=== PATIENT | female | born 1945 | race Caucasian/White ===

== ENCOUNTER 2019-05-22 15:03 | Outpatient (CLI) | payer OTHER ==
--- NOTE | 2019-05-22 15:31 | RAD ---
ABDOMEN 2 VIEWS: HISTORY: Diarrhea FINDINGS: No free air or differential fluid levels are seen. The bowel gas pattern is unremarkable. 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
== END 2019-05-22 15:04 | disposition home or self-care (01) ==
LOC: SCSRAD 15:03
DX: R19.7 Diarrhea, unspecified (principal)
CPT/HCPCS: 74019

== ENCOUNTER 2019-09-25 14:54 | Outpatient (CLI) | payer MEDICARE ==
--- NOTE | 2019-09-25 15:47 | RAD ---
EXAM: LEFT SHOULDER THREE VIEWS: 09/25/19 HISTORY: Left shoulder pain for several weeks. FINDINGS: Minimal deformity of the distal clavicle evidence for healed fracture. No evidence for acute fracture or dislocation. IMPRESSION: Mild degenerative and osteoarthrosis change. Healed distal clavicle fracture. 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 POS: RRE
== END 2019-09-25 14:55 | disposition home or self-care (01) ==
LOC: SCSRAD 14:54
DX: M25.512 Pain in left shoulder (principal); M19.012 Primary osteoarthritis, left shoulder; I77.810 Thoracic aortic ectasia; I70.0 Atherosclerosis of aorta

== ENCOUNTER 2021-06-15 15:50 | Emergency (ER) | payer MEDICARE | END 2021-06-15 16:03 | LOC: ERS 15:50 | DX: S01.81XA Laceration without foreign body of other part of head, initial encounter (principal); V00.811A Fall from moving wheelchair (powered), initial encounter; I10 Essential (primary) hypertension; Z79.899 Other long term (current) drug therapy | CPT/HCPCS: 12013; 90471 ==

== ENCOUNTER 2021-07-26 20:12 | Emergency (ER) | payer MEDICARE | END 2021-07-26 22:28 | disposition home or self-care (01) | LOC: ERS 20:12 | DX: S00.83XA Contusion of other part of head, initial encounter (principal); I10 Essential (primary) hypertension; F03.90 Unspecified dementia, unspecified severity, without behavioral disturbance, psychotic disturbance, mood disturbance, and anxiety; G47.30 Sleep apnea, unspecified; W05.0XXA Fall from non-moving wheelchair, initial encounter | CPT/HCPCS: 70450; 72125 ==